=== PATIENT | female | born 1970 ===

== ENCOUNTER 2025-01-22 09:47 | Outpatient (AMB) | payer BC, SELFPAY ==
[2025-01-22 10:37] VITALS: BP 110/50; PULSE 60; RESP 18; TEMP 36.2; O2SAT 97; BMI 26.9
--- NOTE | 2025-01-22 10:37 | GYNCLNT_ITS ---
Vital Signs 01/22/25 10:37 Height 1.5 m Height Method Stated Weight 60.328 kg Weight Measurement Method Standing Scale BMI 26.9 BP 110/50 L Blood Pressure Source Automatic Cuff Blood Pressure Location Left Upper Arm Position Sitting Respiration 18 Pulse 60 Pulse Source Monitor Temp 97.2 F Temp Source Oral Pulse Oximetry (%) 97 Oxygen Delivery Method Room Air Allergies/Home Meds Allergies & Medications Allergies No Known Allergies Allergy (Verified 01/22/25 10:38) Medication Reconciliation No Known Home Medications 01/22/25 [History Confirmed 01/22/25] Intake Visit Data Collection New Patient or Established: Established Patient (seen at [facility] within 3 years) Reason for Visit:: Annual gynecological exam Seen by Clinical Staff ONLY (RN/MA): Yes Plodder Operator Required: No Do You Feel Safe at Home: Yes Authorities Contacted: N/A PCP or OBGYN visit in last 3 months: Yes Hx Now: No Are you currently on any form of Control: No Pain Present Currently: No Pain Scale Used: Flynn-Vargas/Numerical Pain scale:: 0 Smoking Status Smoking Status: Never smoker Forms Analysis Manager history Forms Analysis Manager History Menstrual regularity: irregular Flow: normal Monthly: No Age at menarche: 11 Currently sexually active: No Questionnaires Covid-19 Vaccine Questionnaire Has patient been vacinated for Covid-19 Have you been vacinated for Covid-19: No PHQ-9 PHQ-2 Over the last 2 weeks, how often have you been bothered by any of the following problems? 1. Little interest or pleasure in doing things: not at all 2. Feeling down, depressed, or hopeless: not at all Total score: 0 PHQ-9 3. Trouble falling or staying asleep, or sleeping too much: Not at all 4. Feeling tired or having little energy: Not at all 5. Poor appetite or overeating: Not at all 6. Feeling bad about yourself - or that you are a failure or have let yourself or your family down: Not at all 7. Trouble concentrating on things, such as reading the newspaper or watching television: Not at all 8. Moving or speaking so slowly that other people could have noticed? - Or the opposite - being so fidgety or restless that you have been moving around a lot more than usual: not at all 9. Thoughts that you would be better off or of hurting yourself in some way: Not at all Total score: 0 If you checked off any problems, how difficult have these problems made it for you to do your work, take care of things at home, or get along with other people?: not difficult at all Source: Developed by Drs. Steve Conde, Andria Golden, Roberto Shane and colleagues, with an educational lisa from [employer]. Depression screen completed yes Social History Living Situation History Marital Status: Single Lives With: Children Housing: House Housing Other:: Patient is a health advocate. She has a 30 y/o daughter and a 16 y/o son Tobacco History Smoking Status: Never smoker Second Hand Smoke Exposure: No Alcohol History Alcohol Intake: Current Alcohol Intake Frequency: holidays/special occasions only Domestic Abuse History Do You Feel Safe at Home: Yes Past Medical History Past Medical History Have you ever been diagnosed with any of the following: Reproductive Problems Previous Pregnancies: Yes ( 31 years ago 16 years ago) Endocrine Problems Hyperthyroidism: Yes Blood Problems Anemia: No Other Problems Hospitalization: Yes (For childbirth x 2) Anesthesia Reactions: No Surgical History Appendectomy: No Bariatric Surgery: No Breast Surgery: No Additional Surgical History: Thyroidectomy 2021 History of Present Illness HPI Narrative The patient is a 55-year-old -0-0-2 presents for an annual exam. She used to see me in [place] and she did release her records. Dr. Telma Dorantes is her primary care. Patient went through menopause at 46 years old and had 1 episode of bleeding in 2019 that was worked up in my office. She has had no bleeding since then. She has no gynecological complaints today specifically no hot flashes night sweats no urinary complaints she is not currently sexually active. She has a son who is about 16 and a daughter who is about 30. She had her thyroid gland removed in 2021 and is on thyroid replacement. Family history is only significant for diabetes and hypertension also osteoporosis in her parents. She denies any personal or family history is of cancers. Review of Systems Review of Systems Narrative Review of Systems: No hot flashes ,no night sweats ,no postmenopausal bleeding ,no painful intercourse ,no abnormal discharge ,no bladder complaints. Exam General General Appearance: alert, in no apparent distress, comfortable, cooperative, healthy appearing and well groomed Neck Neck exam: Present normal inspection, full ROM and trachea midline Chest Chest inspection: Present normal inspection and symmetric chest wall rise Resp Respiratory exam: Present normal lung sounds bilaterally Card Cardiovascular exam: Present regular rate, normal rhythm and normal heart sounds Abdominal Abdominal exam: Present soft and normal bowel sounds External exam: Present normal external exam Speculum exam: Present normal speculum exam Bimanual exam: Present normal bimanual exam Extremities Extremities exam: Present normal inspection and full ROM Psych Psychiatric exam: Present normal affect and normal mood Skin Skin exam: Present warm, dry, intact and normal color Assessment & Plan Diagnosis / Problem List (1) Women's annual routine gynecological examination: Status: Acute Assessment and Plan: Pap with high risk HPV cotesting performed breast exam done encouraged mammogram ordered she can follow-up with her primary care for lab work and colon screening she will follow-up yearly or as needed. Office Procedures OB Clinic LOC & Office Proc's Nursing/Assessment Patient Status: Initial/New Patient OB Clinic Nursing Assessment: BP Monitoring, Medication Reconciliation, Update PMH in EMR and Vital Signs OB Clinic Coordination of Care: Consent,records obtained, informed consent, Lab and Imaging orders and Staff clarify orders Miscellaneous Interventions: Pelvic/Pap Smear Set up New Patient Charge New Patient Point Assignment: 1094 New Patient Point Charge: CERTIFIED MAINTENANCE WELDER Level 3 (4752-4010) In Clinic Procedures Pap Smear: Yes TRANSFORMATION ARCHITECT: Papsmear Pap Smear Procedure [place]arone in room during procedure?: No Pre-op diagnosis general: Annual gynecological Pap smear Post-op diagnosis procedure note: Same Procedure Notes:: Pap with cotesting to HPV performed Papsmear completed: yes
== END 2025-01-22 11:27 | disposition home or self-care (01) ==
LOC: HODSOBC 09:47
PROVIDERS: PCP Internal Medicine; Referring Provider Internal Medicine; Supervising Provider Obstetrics & Gynecology; Visit Provider Obstetrics & Gynecology
DX: Z01.419 Encounter for gynecological examination (general) (routine) without abnormal findings (principal); Z11.51 Encounter for screening for human papillomavirus (HPV)
CPT/HCPCS: 99203; Q0091; G0463